=== PATIENT | female | born 1945 | race African-American/Black ===

== ENCOUNTER 2018-06-08 07:05 | Day surgery (SDC) | payer MEDICARE ==
[2018-06-08 08:11] LABS: Basophils % (Auto) 0.8 % (0.0-1.8); Eosinophils # (Auto) 0.2 K/mm3 (0.0-0.4); Eosinophils % (Auto) 4.3 % (0.0-4.3); Hematocrit 32.5 % (30.3-42.9); Lymphocytes # (Auto) 1.5 K/mm3 (1.2-5.4); Lymphocytes % (Auto) 34.8 % (13.4-35.0); Mean Corpuscular HGB Conc 34 % (30-34); Mean Corpuscular Hemoglobin 30 pg (28-32); Mean Corpuscular Volume 89 fl (79-97); Monocytes # (Auto) 0.5 K/mm3 (0.0-0.8); Monocytes % (Auto) 11.2 % (0.0-7.3); Platelet Count 145 K/mm3 (140-440); Red Blood Count 3.66 M/mm3 (3.65-5.03); Red Cell Distribution Width 13.5 % (13.2-15.2)
[2018-06-08 08:22] LABS: INR 1.11 (0.87-1.13); Partial Thromboplastin Time 34.8 Sec. (24.2-36.6)
[2018-06-08] MEDS ORDERED: XYLOCAINE 1% 20 mL ONE (09:46)
[2018-06-08] MEDS ORDERED: VERSED IV ONE (10:00)
[2018-06-08] MEDS ORDERED: SUBLIMAZE IV ONE (10:00)
--- NOTE | 2018-06-08 10:32 | Short Stay Summary ---
Short Stay Documentation Date of service: 06/08/18 - History Principal diagnosis: abnormal liver enzymes H&P: obtained from office Past Medical History: diabetes, hypertension - Allergies and Medications Current Medications: Allergies No Known Allergies Allergy (Verified 06/08/18 07:44) Home Medications Medication Instructions Recorded Confirmed Last Taken Type Simvastatin 20 mg PO DAILY 06/08/18 06/08/18 06/07/18 History 20 mg Sitagliptin Phos/Metformin HCl 1 tab PO BID 06/08/18 06/08/18 06/07/18 History [Janumet 50-1,000 mg] 1 each amLODIPine [Norvasc] 10 mg PO DAILY 06/08/18 06/08/18 06/08/18 History 10 mg glipiZIDE [Glucotrol] 10 mg PO DAILY 06/08/18 06/08/18 06/07/18 History 10 - Physical exam General appearance: no acute distress Lungs: Clear to auscultation Gastrointestinal: normal - Brief post op/procedure progress note Date of procedure: 06/08/18 Pre-op diagnosis: ebnormal liver enzymes Post-op diagnosis: same Procedure: CT liver biopsy Anesthesia: other (moderate sedation) Surgeon: AKHIL JAY Estimated blood loss: none Pathology: list (18G core) Specimen disposition: to lab Condition: stable - Disposition Condition at discharge: Good Disposition: DC-01 TO HOME OR SELFCARE Short Stay Discharge Plan Follow up with: GRETCHEN ZIMMERMAN MD [Primary Care Provider] - 7 Days
[2018-06-08] MEDS ORDERED: NORCO 5/325 PO ONE (12:21)
--- NOTE | 2018-06-08 12:51 | Cat Scan Report ---
CT BIOPSY LIVER History: Abnormal liver enzymes. Description of procedure: Informed consent was obtained. The patient's served as an site interpreter. Sterile technique was utilized. Conscious sedation was accomplished with Versed and fentanyl. The patient was sedated for 15 minutes. Intraobserver time of 15 minutes. Independent cardiorespiratory monitoring by RN. Using CT guidance, a 17-gauge introducer needle was advanced into the right hepatic lobe. An 18-gauge core biopsy was obtained for pathologic analysis. No complications. Impression: Successful CT-guided biopsy of the right hepatic lobe.
[2018-06-08 14:54] VITALS: BP 146/65
== END 2018-06-08 14:15 | disposition home or self-care (01) ==
LOC: CATHLABREC 07:05 → EDSTATUS 08:30 → CATHLABREC 14:15
PROVIDERS: ATTEND Internal Medicine Gastroenterology
DX: B18.2 Chronic viral hepatitis C (principal); E11.9 Type 2 diabetes mellitus without complications; E78.00 Pure hypercholesterolemia, unspecified; I10 Essential (primary) hypertension; F41.9 Anxiety disorder, unspecified; J45.909 Unspecified asthma, uncomplicated; Z98.890 Other specified postprocedural states; Z98.891 History of uterine scar from previous surgery; Z79.899 Other long term (current) drug therapy; Z79.01 Long term (current) use of anticoagulants
CPT/HCPCS: 36415; 47000; 77012; 85025; 85610; 85730; 88307; J2250; J3010; 88313

== ENCOUNTER 2018-07-15 12:02 | Outpatient (CLI) | payer MEDICARE ==
--- NOTE | 2018-07-15 15:26 | Ultrasound Report ---
VACUUM ASSISTED ULTRASOUND GUIDED NEEDLE CORE BIOPSY WITH CLIP PLACEMENT LEFT: 07/15/18 12:02:00 CLINICAL: A subcentimeter intraductal retroareolar lesion 12 o'clock. COMPARISON :Outside mammogram and ultrasound from the [facility], and [place], [place]. FINDINGS: The procedure was explained to the patient and informed consent was obtained. Ultrasound demonstrated the previously described retroareolar lesion at 12 o'clock. The skin was prepped with Betadine and anesthetized with 1% lidocaine. Vacuum-assisted needle core biopsy was performed through a small dermatotomy using ultrasound guidance, 2% lidocaine with epinephrine for deep anesthesia and a 10-gauge Mammotome Revolve biopsy probe. 4 cores were obtained and placed in formalin. A hydro-amanda biopsy clip was deployed within the lesion. Hemostasis was achieved with minimal pressure and a sterile dressing was applied. The patient tolerated the procedure well and there were no apparent complications. A two view mammogram demonstrated concordant clip placement. The patient left the department in good condition and was given instructions for wound care and follow up. IMPRESSION: Uncomplicated vacuum-assisted ultrasound core biopsy and clip placement left breast.
--- NOTE | 2018-07-15 15:32 | Mammography Report ---
LEFT DIGITAL DIAGNOSTIC MAMMOGRAM: 07/15/18 12:02:00 CLINICAL: For clip placement immediately status post ultrasound biopsy. COMPARISON:11/26/17 mammogram from [facility], [place], [place] FINDINGS: A retroareolar biopsy clip is identified and correlates with the previously described lesion. IMPRESSION: Concordant clip placement status post ultrasound biopsy. BI-RADS CATEGORY: 4--Suspicious Pathology pending.
== END 2018-07-15 12:03 | disposition home or self-care (01) ==
LOC: SPVWC 12:02
PROVIDERS: ATTEND Internal Medicine
DX: D05.12 Intraductal carcinoma in situ of left breast (principal); N63.21 Unspecified lump in the left breast, upper outer quadrant; I10 Essential (primary) hypertension; E78.00 Pure hypercholesterolemia, unspecified; J45.909 Unspecified asthma, uncomplicated; F41.9 Anxiety disorder, unspecified; Z98.890 Other specified postprocedural states; Z79.899 Other long term (current) drug therapy; Z98.891 History of uterine scar from previous surgery
CPT/HCPCS: 88305; 88342